=== PATIENT | female | born 1960 | race Caucasian/White ===

== ENCOUNTER → 2016-09-21 | Outpatient (CLI) | payer BC | LOC: KOH-I 08:42 | DX: M51.36 Other intervertebral disc degeneration, lumbar region (principal); M54.16 Radiculopathy, lumbar region; M54.89 Other dorsalgia; Z88.0 Allergy status to penicillin; M51.26 Other intervertebral disc displacement, lumbar region; M51.27 Other intervertebral disc displacement, lumbosacral region | CPT/HCPCS: 72146; 72148 ==

== ENCOUNTER → 2016-09-22 | Outpatient (CLI) | payer BC | LOC: KOH-I 09:30 | DX: M13.851 Other specified arthritis, right hip (principal); M13.852 Other specified arthritis, left hip; Z79.82 Long term (current) use of aspirin; Z79.899 Other long term (current) drug therapy; R93.7 Abnormal findings on diagnostic imaging of other parts of musculoskeletal system | CPT/HCPCS: 73721 ==

== ENCOUNTER → 2016-09-25 | Outpatient (CLI) | payer BC | LOC: KOH-I 15:21 | DX: M13.851 Other specified arthritis, right hip (principal); M13.852 Other specified arthritis, left hip; S76.011A Strain of muscle, fascia and tendon of right hip, initial encounter | CPT/HCPCS: 73721 ==